=== PATIENT | male | born 1995 ===

== ENCOUNTER 2024-02-24 10:57 | Outpatient (CLI) | payer OTHER | END 2024-02-24 11:15 | disposition home or self-care (01) | LOC: TOM 10:57 | PROVIDERS: ATTEND Orthopaedic Surgery | DX: M25.571 Pain in right ankle and joints of right foot (principal) ==

== ENCOUNTER 2024-03-09 08:24 | Outpatient (CLI) | payer OTHER | END 2024-03-09 08:35 | disposition home or self-care (01) | LOC: RAD 08:24 | PROVIDERS: ATTEND Orthopaedic Surgery | DX: M25.571 Pain in right ankle and joints of right foot (principal); S93.432A Sprain of tibiofibular ligament of left ankle, initial encounter; S82.51XA Displaced fracture of medial malleolus of right tibia, initial encounter for closed fracture | CPT/HCPCS: 73721 ==